=== PATIENT | female | born 1930 | race Caucasian/White ===

== ENCOUNTER → 2017-12-06 | Outpatient (REF) | payer MEDICARE, MEDICAID | LOC: ZZLCC 14:17 | PROVIDERS: ATTEND Family Medicine | DX: R82.90 Unspecified abnormal findings in urine (principal); F41.9 Anxiety disorder, unspecified | CPT/HCPCS: 81001; 82040; 82247; 82310; 82374; 82435; 82565; 82947; 84075; 84132; 84155; 84295; 84443; 84450; 84460; 84520; 85027; 87088 ==

== ENCOUNTER → 2018-03-12 | Outpatient (REF) | payer MEDICARE, MEDICAID | LOC: ZZLCC 17:28 | PROVIDERS: ATTEND Family Medicine | DX: N39.0 Urinary tract infection, site not specified (principal) | CPT/HCPCS: 81001; 87088 ==

== ENCOUNTER 2018-06-02 15:53 | Inpatient (IN) | payer MEDICARE, MEDICAID ==
[~2018-06-02] VITALS: Ht 167.6 cm; Wt 88.0 kg
[2018-06-02 16:28] LABS: PLATELET COUNT, AUTOMATED 247 K/uL (150-450)
--- NOTE | 2018-06-02 16:28 | ER Report ---
History and Physical Time Seen By MD: 15:56 Hx. of Stated Complaint: EMS REPORTS THAT THE PATIENT IS HERE FOR ALTERED MENTAL STATUS. THE PATIENT REPORTS THAT SHE IS HURTING ALL OVER BUT CANNOT SPECIFY WHERE HER PAIN IS. PATIENT DOES NOT KNOW WHY SHE IS HERE HPI/ROS CHIEF COMPLAINT: Lethargy HISTORY OF PRESENT ILLNESS: Patient is a 87-year-old female who presents the ED with complaint of lethargy. She is a resident at the [facility] and nursing staff noted that she has been more lethargic for the past couple days. They discussed this with the physician who advised them to notify the POA. The patient's POA did want her to be evaluated at the emergency department. The patient is DO NOT RESUSCITATE. She does have a history of dementia so confusion is normal for her. She is not having any complaints. She states that she is feeling well. She denies any chest pain, abdominal pain, shortness of breath, dysuria, headache. She has not had any fever. Nursing staff states that all her vital signs have been normal. REVIEW OF SYSTEMS: Constitutional: No fever, no chills. Eyes: No discharge. ENT: No sore throat. Cardiovascular: No chest pain, no palpitations. Respiratory: No cough, no shortness of breath. Gastrointestinal: No abdominal pain, no vomiting. Genitourinary: No hematuria. Musculoskeletal: No back pain. Skin: No rashes. Neurological: No headache. Home Meds Reported Medications Vits A and D/White Pet/Lanolin (A and D Ointment) 42.5 Gm Oint...g. 06/02/18 Guaifenesin (TUSSIN) 100 Mg/5 Ml Liquid, 100 MG PO 06/02/18 Triamterene/Hydrochlorothiazid (TRIAMTERENE-HCTZ 37.5-25 MG CP) 1 Each Capsule, 1 EACH PO QDAY, CAPSULE 06/02/18 Quetiapine Fumarate (SEROQUEL) 25 Mg Tablet, 25 MG PO BID 06/02/18 Potassium Chloride (POTASSIUM CHLORIDE) 20 Meq Tab.er.prt, 20 MEQ PO QDAY 06/02/18 Multivitamin With Minerals (MULTIPLE VITAMIN) 1 Each Tablet, 1 EACH PO QDAY, TAB 06/02/18 Magnesium Hydroxide (MILK OF MAGNESIA) 400 Mg/5 Ml Oral.susp, 400 MG PO, BOTTLE 06/02/18 Lorazepam (LORAZEPAM) 0.5 Mg Tablet, 0.25 MG PO BID 06/02/18 Loperamide Hcl (ANTI-DIARRHEA) 2 Mg Tablet, 2 MG PO Q6H 06/02/18 Levothyroxine Sodium (LEVOTHYROXINE SODIUM) 75 Mcg Tablet, 75 MCG PO QDAY, TAB 06/02/18 Ibuprofen (IBUPROFEN) 200 Mg Capsule, 1 CAP PO Q6H, CAPSULE 06/02/18 Hydroxyzine Hcl (HYDROXYZINE HCL) 25 Mg Tablet, 25 MG PO Q8H Y for ITCHING 06/02/18 Gabapentin (GABAPENTIN) 300 Mg Capsule, 100 MG PO TID, CAPSULE 06/02/18 Furosemide (FUROSEMIDE) 40 Mg Tablet, 2 TAB PO QAM, TAB 06/02/18 Na Phos,M-B/Na Phos,Di-Ba (FLEET ENEMA) 133 Ml Enema, 133 ML RC 06/02/18 Citalopram Hydrobromide (CITALOPRAM HBR) 20 Mg Tablet, 20 MG PO QDAY, #5 TAB 06/02/18 Calcium Phosphate Trib/Vit D3 (CALCIUM-VITAMIN D3 GUMMIES) 1 Each Tab.chew, 1 EACH PO QDAY, TAB.CHEW 06/02/18 Calcium Carbonate (NORBERTO-GEST) 200 Mg Tab.chew, 200 MG PO PRN, TAB.CHEW 06/02/18 Aspirin (ASPIR 81) 81 Mg Tablet.dr, 81 MG PO QDAY, TAB 06/02/18 Dextran 70/Hypromellose (ARTIFICIAL TEARS) 1 Each Droperette, 1 EACH OP 06/02/18 Acetaminophen 500 Mg Tab (ACETAMINOPHEN EXTRA STRENGTH) 500 Mg Tablet, 500 MG PO Q4-6H, TAB 06/02/18 Reviewed Nurses Notes: Yes Old Medical Records Reviewed: Yes Constitutional Vital Sign - Last 24 Hours 06/02/18 15:57 Temp 97.7 Pulse 70 Resp 20 B/P (MAP) 99/58 Pulse Ox 97 O2 Delivery Room Air Physical Exam General Appearance: The patient is alert, has no immediate need for airway protection and no signs of toxicity. Patient appears to be in no acute distress. She is oriented 2. Eyes: Pupils equal and round no pallor or injection. ENT, Mouth: Mucous membranes are moist. Respiratory: There are no retractions, lungs are clear to auscultation. Cardiovascular: Regular rate and rhythm. Gastrointestinal: Abdomen is soft and non tender, no masses, bowel sounds normal. Neurological: Patient will not follow all exam commands for cranial nerves. Cannot appreciate any neurologic deficits at this time but difficult due to patient not cooperating. Skin: Warm and dry, no rashes. Musculoskeletal: Neck is supple non tender. Extremities are nontender, nonswollen and have full range of motion. DIFFERENTIAL DIAGNOSIS: After history and physical exam differential diagnosis was considered for altered mental status including but not limited to hypoglycemia, infectious process, electrolyte abnormality, head injury and intoxicants. Medical Decision Making Data Points Result Diagram: 06/02/18 1620 06/02/18 1620 Laboratory Hematology Test 06/02/18 16:20 Red Blood Count 5.11 M/uL (4.17-5.56) Mean Corpuscular Volume 95.5 fL (80.0-96.0) Mean Corpuscular Hemoglobin 32.7 pg (26.0-33.0) Mean Corpuscular Hemoglobin Concent 34.3 g/dL (32.0-36.0) Red Cell Distribution Width 15.3 % (11.5-14.5) Mean Platelet Volume 9.6 fL (7.2-11.1) Neutrophils (%) (Auto) 76.6 % (39.4-72.5) Lymphocytes (%) (Auto) 10.0 % (17.6-49.6) Monocytes (%) (Auto) 12.0 % (4.1-12.4) Eosinophils (%) (Auto) 0.9 % (0.4-6.7) Basophils (%) (Auto) 0.5 % (0.3-1.4) Nucleated RBC Relative Count (auto) 0.0 /100WBC Neutrophils # (Auto) 7.5 K/uL (2.0-7.4) Lymphocytes # (Auto) 1.0 K/uL (1.3-3.6) Monocytes # (Auto) 1.2 K/uL (0.3-1.0) Eosinophils # (Auto) 0.1 K/uL (0.0-0.5) Basophils # (Auto) 0.0 K/uL (0.0-0.1) Nucleated RBC Absolute Count (auto) 0.00 K/uL Sodium Level 140 mmol/L (137-145) Potassium Level 3.3 mmol/L (3.5-5.0) Chloride Level 89 mmol/L (98-107) Carbon Dioxide Level 40 mmol/L (22-31) Blood Urea Nitrogen 66 mg/dl (7-18) Creatinine 2.00 mg/dl (0.52-1.04) Glomerular Filtration Rate Calc 23.6 Random Glucose 113 mg/dl (75-110) Calcium Level 10.1 mg/dl (8.4-10.2) Total Bilirubin 0.8 mg/dl (0.2-1.3) Aspartate Amino Transf (AST/SGOT) 20 U/L (0-35) Alanine Aminotransferase (ALT/SGPT) 20 U/L (0-56) Alkaline Phosphatase 114 U/L (0-126) Troponin I < 0.012 ng/ml Total Protein 8.1 g/dl (6.3-8.2) Albumin 4.3 g/dl (3.5-5.0) Chemistry Test 06/02/18 16:20 White Blood Count 9.7 k/uL (4.5-11.0) Red Blood Count 5.11 M/uL (4.17-5.56) Hemoglobin 16.7 g/dL (12.0-16.0) Hematocrit 48.8 % (34.0-47.0) Mean Corpuscular Volume 95.5 fL (80.0-96.0) Mean Corpuscular Hemoglobin 32.7 pg (26.0-33.0) Mean Corpuscular Hemoglobin Concent 34.3 g/dL (32.0-36.0) Red Cell Distribution Width 15.3 % (11.5-14.5) Platelet Count 247 K/uL (150-450) Mean Platelet Volume 9.6 fL (7.2-11.1) Neutrophils (%) (Auto) 76.6 % (39.4-72.5) Lymphocytes (%) (Auto) 10.0 % (17.6-49.6) Monocytes (%) (Auto) 12.0 % (4.1-12.4) Eosinophils (%) (Auto) 0.9 % (0.4-6.7) Basophils (%) (Auto) 0.5 % (0.3-1.4) Nucleated RBC Relative Count (auto) 0.0 /100WBC Neutrophils # (Auto) 7.5 K/uL (2.0-7.4) Lymphocytes # (Auto) 1.0 K/uL (1.3-3.6) Monocytes # (Auto) 1.2 K/uL (0.3-1.0) Eosinophils # (Auto) 0.1 K/uL (0.0-0.5) Basophils # (Auto) 0.0 K/uL (0.0-0.1) Nucleated RBC Absolute Count (auto) 0.00 K/uL Glomerular Filtration Rate Calc 23.6 Calcium Level 10.1 mg/dl (8.4-10.2) Total Bilirubin 0.8 mg/dl (0.2-1.3) Aspartate Amino Transf (AST/SGOT) 20 U/L (0-35) Alanine Aminotransferase (ALT/SGPT) 20 U/L (0-56) Alkaline Phosphatase 114 U/L (0-126) Troponin I < 0.012 ng/ml Total Protein 8.1 g/dl (6.3-8.2) Albumin 4.3 g/dl (3.5-5.0) EKG/Imaging EKG Interpretation 12 lead EKG: Rhythm: Normal sinus rhythm, rate 78 bpm [place]: normal QRS: normal ST segments: No acute ST changes noted. There is some T-wave flattening noted throughout V1 through V6. A single PVC is noted. Monitor Interpretation: Normal Sinus Rhythm Imaging CT Head: IMPRESSION: 1. Senescent changes without acute abnormality. Report Dictated By: En Ibarra at 06/02/2018 5:40 PM Report E-Signed By: En Ibarra at 06/02/2018 5:44 PM ED Course/Re-evaluation ED Course Will obtain EKG, labs, CT of the head. 06/02/2018 6:02:09 pm - reviewed all labs and appears the patient does have an elevated BUN/creatinine and creatinine. She does have chronic kidney disease and may have some dehydration on top of this. She does have some upper chloremia in mild hypo-kalemia. Patient was given a 500 normal saline bolus. She does have an elevated hemoglobin and hematocrit likely secondary to some dehydration as well. Patient is otherwise quite alert and does not appear to be overtly lethargic here. She may be monitored at the long term for her hydration status. They can discussed with the POA whether he wants continued IV hydration other than the bolus she received here. Her CT of her head was normal. Decision to Disposition Date: Jun 02, 2018 Decision to Disposition Time: 18:05 Depart Departure Latest Vital Signs Vital Signs Date Time Temp Pulse Resp B/P (MAP) Pulse Ox O2 Delivery O2 Flow Rate FiO2 06/02/18 15:57 97.7 70 20 99/58 97 Room Air Impression: Primary Impression: Chronic kidney disease Additional Impression: Dehydration Condition: Improved Disposition: HOME OR SELF-CARE Patient Instructions: Chronic Kidney Disease (ED), Dehydration (ED) Additional Instructions: Would recommend primary care having discussion with POA regarding any further IV hydration. Patient was given a bolus of fluids here and should consider having labs completed tomorrow to check for hydration status and kidney function. If having any worsening or concerning symptoms may return to the emergency department. Problem Qualifiers Primary Impression: Chronic kidney disease Chronic kidney disease stage: stage 3 (moderate) Qualified Codes: N18.3 - Chronic kidney disease, stage 3 (moderate) HÉCTOR TELLES PA-C Jun 02, 2018 16:28
--- NOTE | 2018-06-02 16:36 | EKG ---
FACILITY: [facility] PATIENT NAME: TREVOR ELLISON : [id number] MR: [id number] V: [id number] EXAM DATE: ORDERING PHYSICIAN: HÉCTOR TELLES TECHNOLOGIST: ISIAH Ren Reason : Blood Pressure : / mmHG Vent. Rate : 078 BPM Atrial Rate : 078 BPM P-R Int : 244 ms QRS Dur : 086 ms QT Int : 438 ms P-R-T Axes : 042 -43 023 degrees QTc Int : 499 ms Sinus rhythm with 1st degree AV block with occasional premature ventricular complexes Left axis deviation Cannot rule out Anterior infarct , age undetermined Abnormal ECG No previous ECGs available Confirmed by AMA ISAAC ([id number]) on 06/03/2018 5:54:33 AM Referred By: SKYE Confirmed By:AMA ISAAC
[2018-06-02] MEDS ORDERED: NS(*) 0.9% 500 ML BAG 500 ML IV ONE ×2 (16:50→18:20)
[2018-06-02] MEDS ORDERED: ACET-2146 PO (17:15)
[2018-06-02] MEDS ORDERED: GUAI-274 PO (17:15)
[2018-06-02] MEDS ORDERED: CITA-145 PO (17:15)
[2018-06-02] MEDS ORDERED: GABA-549 PO (17:15)
[2018-06-02] MEDS ORDERED: LEVO75TA73 PO (17:15)
[2018-06-02] MEDS ORDERED: NA P133E21 RC ×2 (17:15→20:37)
[2018-06-02] MEDS ORDERED: MOM PO (17:15)
[2018-06-02] MEDS ORDERED: QUET25TA30 PO (17:15)
[2018-06-02] MEDS ORDERED: LORA-630 PO (17:15)
[2018-06-02] MEDS ORDERED: FURO-47 PO (17:15)
[2018-06-02] MEDS ORDERED: LOPE-147 PO (17:15)
[2018-06-02] MEDS ORDERED: ASPI-1471 PO (17:15)
[2018-06-02] MEDS ORDERED: IBUP200C71 PO (17:15)
[2018-06-02] MEDS ORDERED: DEXT1DRO15 OP (17:15)
[2018-06-02] MEDS ORDERED: POTA20TA94 PO (17:15)
[2018-06-02] MEDS ORDERED: MULT-1335 PO (17:15)
[2018-06-02] MEDS ORDERED: [UNRECOGNIZED DRUG - CODE] PO (17:15)
[2018-06-02] MEDS ORDERED: CALC1TAB56 PO (17:15)
[2018-06-02] MEDS ORDERED: TRIA1CAP85 PO (17:15)
[2018-06-02] MEDS ORDERED: VITS42.53 (17:15)
[2018-06-02] MEDS ORDERED: HYDR-4225 PO (17:15)
--- NOTE | 2018-06-02 17:49 | RADIOLOGY IMAGING REPORT ---
FACILITY: [facility] [place] PATIENT NAME: Nancy Arteaga : 1930 MR: [id number] V: [id number] EXAM DATE: ORDERING PHYSICIAN: HÉCTOR TELLES TECHNOLOGIST: Location: [facility] Patient: Nancy Arteaga : 1930 Visit/Account:[id number] Date of Sevice: 06/02/2018 CT Head without contrast Indication: Lethargy. Comparison: None available Technique: Axial CT images were obtained through the brain from the skull base to the vertex without administration of IV contrast. Reformatted coronal and sagittal images were also obtained. One of the following dose optimization techniques was utilized in the performance of this exam: autom ated exposure control; adjustment of the mA and/or kV according to the patient's size; or use of an i terative reconstruction technique. Specific details can be referenced in the facility's radiology CT exam operational policy. Findings: No evidence of mass, mass effect, or midline shift. No acute intracranial hemorrhage or acute territorial infarction. No extra-axial fluid collection or hydrocephalus. Age-related cerebral atrophy. Periventricular white matter ischemic changes consistent small vessel disease. Duenas/white matter differentiation appears n ormal. Mild bilateral internal carotid artery calcifications. Structures show no fractures or lesions. Mild rightward deviation nasal septum. The visualized paranasal sinuses and mastoid air cells are clear. IMPRESSION: 1. Senescent changes without acute abnormality. Report Dictated By: En Ibarra at 06/02/2018 5:40 PM Report E-Signed By: En Ibarra at 06/02/2018 5:44 PM WSN:[id number]
--- NOTE | 2018-06-02 19:21 | RADIOLOGY IMAGING REPORT ---
FACILITY: [facility] PATIENT NAME: Nancy Arteaga : 1930 MR: [id number] V: [id number] EXAM DATE: ORDERING PHYSICIAN: HÉCTOR TELLES TECHNOLOGIST: Location: [facility] [place] Patient: Nancy Arteaga : 1930 Visit/Account:[id number] Date of Sevice: 06/02/2018 EXAMINATION: Portable chest radiograph single view at 6:28 PM HISTORY: Lethargy. COMPARISON: None. FINDINGS: A single portable AP view of the chest is obtained. Lines/tubes: None. Lungs/pleura: Streaky opacities at the lung bases. The lungs are hyperexpanded. No evidence of pleur al effusion or pneumothorax. Heart: Negative. Mediastinum: Calcified plaque of the aortic arch. Bony structures/body wall: Negative. IMPRESSION: Subsegmental atelectasis at the lung bases. Superimposed infiltrate is not excluded. Hyperexpanded lungs. Report Dictated By: Clay Wagner MD at 06/02/2018 7:15 PM Report E-Signed By: Clay Wagner MD at 06/02/2018 7:18 PM WSN:[id number]
[2018-06-02] MEDS ORDERED: NS(*) 0.9% 1000 ML BAG 1,000 ML IV PRN (19:48)
[2018-06-02 20:13] VITALS: BP 122/64
[2018-06-02] MEDS ORDERED: CALC-852 PO (20:27)
[2018-06-02] MEDS ORDERED: GABA-547 PO (20:27)
[2018-06-02] MEDS ORDERED: FURO80TA70 PO (20:27)
[2018-06-02] MEDS ORDERED: P EP PO (20:27)
[2018-06-02] MEDS ORDERED: CALC-598 PO (20:32)
[2018-06-02] MEDS ORDERED: DONE10TA38 PO (20:32)
[2018-06-02] MEDS ORDERED: GUIDMUD PO (20:37)
[2018-06-02] MEDS ORDERED: CALCIUM CARBONATE 500 MG CHEW PO PRN (20:45)
--- NOTE | 2018-06-02 21:16 | History & Physical ---
History of Present Illness Chief Complaint Lethargy History of Present Illness The patient is an 87 year old resident of [facility] who was sent to [facility] for evaluation due to lethargy and increased need for help with ADLs. The patient has a history of UTIs. The patient is a poor historian due to dementia. She denies dysuria or abdominal pain. She denies cough. She has not been febrile per nursing report from [facility]. She has a history of CKD and her last creatinine on 05/29 was 1.8. History Problems: (1) Osteoarthritis Status: Chronic (2) Dementia Status: Chronic (3) CKD (chronic kidney disease) Status: Chronic (4) Hypothyroidism Status: Chronic (5) Hypertension Status: Chronic (6) GERD (gastroesophageal reflux disease) Status: Chronic (7) Dysphagia Status: Chronic Comment: Diet is mechanical soft. (8) Depression Status: Chronic (9) Hx: UTI (urinary tract infection) Comment: E. coli Home Meds Reported Medications Na Phos,M-B/Na Phos,Di-Ba (FLEET ENEMA) 133 Ml Enema, 1 THA RC Y for CONSTIPATION 06/02/18 Guaifenesin/Dextromethorphan (Guaifenesin Dm Syrup) 100 Mg-10 Mg/5 Ml Syrup, 15 ML PO Q6H Y for COUGH 06/02/18 Donepezil Hcl (DONEPEZIL HCL) 10 Mg Tablet, 10 MG PO QHS, TAB 06/02/18 Calcium Carbonate (CALCI-CHEW) 500 Mg Tab.chew, 2 TAB PO Q2H Y for GERD, TAB.CHEW 06/02/18 Gabapentin (GABAPENTIN) 100 Mg Capsule, 100 MG PO TID, CAPSULE 06/02/18 Furosemide (FUROSEMIDE) 80 Mg Tablet, 1 TAB PO DAILY, TAB 06/02/18 Calcium Carbonate/Vitamin D3 (CALCIUM + VITAMIN D TABLET) 1 Each Tablet, 1 TAB PO DAILY 06/02/18 Vits A and D/White Pet/Lanolin (A and D Ointment) 42.5 Gm Oint...g. Apply to feet at HS for dry skin 06/02/18 Triamterene/Hydrochlorothiazid (TRIAMTERENE-HCTZ 37.5-25 MG CP) 1 Each Capsule, 1 EACH PO QDAY, CAPSULE 06/02/18 Quetiapine Fumarate (SEROQUEL) 25 Mg Tablet, 25 MG PO BID 06/02/18 Potassium Chloride (POTASSIUM CHLORIDE) 20 Meq Tab.er.prt, 20 MEQ PO QDAY 06/02/18 Multivitamin With Minerals (MULTIPLE VITAMIN) 1 Each Tablet, 1 EACH PO QDAY, TAB 06/02/18 Magnesium Hydroxide (MILK OF MAGNESIA) 400 Mg/5 Ml Oral.susp, 30 ML PO BID Y for CONSTIPATION, BOTTLE 06/02/18 Lorazepam (LORAZEPAM) 0.5 Mg Tablet, 0.25 TAB PO BID 06/02/18 Loperamide Hcl (ANTI-DIARRHEA) 2 Mg Tablet, 2 MG PO QID Y for DIARRHEA 06/02/18 Levothyroxine Sodium (LEVOTHYROXINE SODIUM) 75 Mcg Tablet, 75 MCG PO QDAY, TAB 06/02/18 Ibuprofen (IBUPROFEN) 200 Mg Capsule, 1 CAP PO Q6H Y for restlessness, CAPSULE 06/02/18 Hydroxyzine Hcl (HYDROXYZINE HCL) 25 Mg Tablet, 25 MG PO Q8H Y for ITCHING 06/02/18 Na Phos,M-B/Na Phos,Di-Ba (FLEET ENEMA) 133 Ml Enema, 133 ML RC 06/02/18 Citalopram Hydrobromide (CITALOPRAM HBR) 20 Mg Tablet, 20 MG PO QDAY, #5 TAB Give everyday except Monday. 06/02/18 Aspirin (ASPIR 81) 81 Mg Tablet.dr, 81 MG PO QDAY, TAB 06/02/18 Dextran 70/Hypromellose (ARTIFICIAL TEARS) 1 Each Droperette, 1 EACH OP 06/02/18 Acetaminophen 500 Mg Tab (ACETAMINOPHEN EXTRA STRENGTH) 500 Mg Tablet, 500 MG PO Q4-6H, TAB 06/02/18 Discontinued Reported Medications P-Ephed Hcl/Codeine/Guaifen (GUAIFENESIN DAC ORAL SOLUTION) 473 Ml Syrup, 15 ML PO Q6H Y for COUGH 06/02/18 Guaifenesin (TUSSIN) 100 Mg/5 Ml Liquid, 100 MG PO 06/02/18 Gabapentin (GABAPENTIN) 300 Mg Capsule, 100 MG PO TID, CAPSULE 06/02/18 Furosemide (FUROSEMIDE) 40 Mg Tablet, 2 TAB PO QAM, TAB 06/02/18 Calcium Phosphate Trib/Vit D3 (CALCIUM-VITAMIN D3 GUMMIES) 1 Each Tab.chew, 1 EACH PO QDAY, TAB.CHEW 06/02/18 Calcium Carbonate (NORBERTO-GEST) 200 Mg Tab.chew, 200 MG PO PRN, TAB.CHEW 06/02/18 Allergies: Coded Allergies: Sulfa (Sulfonamide Antibiotics) (Verified Allergy, Unknown, 06/02/18) Other Social/Family Hx The patient is a retired business performance analyst at . She is . Hx Smoking: Yes Smoking Status: Former Smoker Review of Systems All Systems Reviewed/Normal: Yes, Except as Noted Constitutional: No Fever, No Chills Neurological: Weakness, Other (Dementia with agitation.) Cardiovascular: No Chest Pain Respiratory: No Shortness of Breath, No Cough Gastrointestinal: No Abdominal Pain Genitourinary: No Dysuria Psychiatric: Depression Exam Vital Signs Vital Signs Date Time Temp Pulse Resp B/P (MAP) Pulse Ox O2 Delivery O2 Flow Rate FiO2 06/02/18 20:13 97.7 70 16 122/64 (83) 92 Room Air General Appearance: Awake, No Acute Distress, Afebrile Neuro: Other (Poor short term memory. Becomes easily agitated.) Eyes: PERRLA ENT: Other (Mucous membranes dry, sticky.) Cardiovascular: Regular Rate and Rhythm Respiratory: Clear to Auscultation GI: Other (Abdomen slightly distended. BS+.) Extremities: Warm, Perfused, Other (Chronic venous stasis changes. No significant edema.) Integumentary: Scaly / Dry Skin Psych: Other (Agitated.) Medical Decision Making Data Points Result Diagram: 06/02/18 1620 06/02/18 1620 Item Value Date Time Calcium Level 10.1 mg/dl 06/02/18 1620 Total Bilirubin 0.8 mg/dl 06/02/18 1620 Aspartate Amino Transf (AST/SGOT) 20 U/L 06/02/18 1620 Alanine Aminotransferase (ALT/SGPT) 20 U/L 06/02/18 1620 Alkaline Phosphatase 114 U/L 06/02/18 1620 Troponin I < 0.012 ng/ml 06/02/18 1620 Total Protein 8.1 g/dl 06/02/18 1620 Albumin 4.3 g/dl 06/02/18 1620 EKG / Imaging EKG Interpretation FACILITY: [facility] [place] PATIENT NAME: NANCY ELLISON : [id number] MR: [id number] V: [id number] EXAM DATE: ORDERING PHYSICIAN: HÉCTOR TELLES TECHNOLOGIST: ISIAH Ren Reason : Blood Pressure : / mmHG Vent. Rate : 078 BPM Atrial Rate : 078 BPM P-R Int : 244 ms QRS Dur : 086 ms QT Int : 438 ms P-R-T Axes : 042 -43 023 degrees QTc Int : 499 ms Sinus rhythm with 1st degree AV block with occasional premature ventricular complexes Left axis deviation Cannot rule out Anterior infarct , age undetermined Abnormal ECG No previous ECGs available Referred By: SKYE Confirmed By: [id number] T: / Imaging FACILITY: [facility] [place] PATIENT NAME: Nancy Ellison : 1930 MR: [id number] V: [id number] EXAM DATE: ORDERING PHYSICIAN: HÉCTOR TELLES TECHNOLOGIST: Location: [facility] Patient: Nancy Ellison : 1930 Visit/Account:[id number] Date of Sevice: 06/02/2018 CT Head without contrast Indication: Lethargy. Comparison: None available Technique: Axial CT images were obtained through the brain from the skull base to the vertex without administration of IV contrast. Reformatted coronal and sagittal images were also obtained. One of the following dose optimization techniques was utilized in the performance of this exam: automated exposure control; adjustment of the mA and/ or kV according to the patient's size; or use of an iterative reconstruction technique. Specific details can be referenced in the facility's radiology CT exam operational policy. Findings: No evidence of mass, mass effect, or midline shift. No acute intracranial hemorrhage or acute territorial infarction. No extra-axial fluid collection or hydrocephalus. Age-related cerebral atrophy. Periventricular white matter ischemic changes consistent small vessel disease. Duenas/white matter differentiation appears normal. Mild bilateral internal carotid artery calcifications. Structures show no fractures or lesions. Mild rightward deviation nasal septum. The visualized paranasal sinuses and mastoid air cells are clear. IMPRESSION: 1. Senescent changes without acute abnormality. Report Dictated By: En Ibarra at 06/02/2018 5:40 PM Report E-Signed By: En Ibarra at 06/02/2018 5:44 PM WSN:[id number] FACILITY: [facility] [place] PATIENT NAME: Nancy Ellison : 1930 MR: [id number] V: [id number] EXAM DATE: ORDERING PHYSICIAN: HÉCTOR TELLES TECHNOLOGIST: Location: [facility] Patient: Nancy Ellison : 1930 Visit/Account:[id number] Date of Sevice: 06/02/2018 EXAMINATION: Portable chest radiograph single view at 6:28 PM HISTORY: Lethargy. COMPARISON: None. FINDINGS: A single portable AP view of the chest is obtained. Lines/tubes: None. Lungs/pleura: Streaky opacities at the lung bases. The lungs are hyperexpanded. No evidence of pleural effusion or pneumothorax. Heart: Negative. Mediastinum: Calcified plaque of the aortic arch. Bony structures/body wall: Negative. IMPRESSION: Subsegmental atelectasis at the lung bases. Superimposed infiltrate is not excluded. Hyperexpanded lungs. Report Dictated By: Clay Wagner MD at 06/02/2018 7:15 PM Report E-Signed By: Clay Wagner MD at 06/02/2018 7:18 PM WSN:[id number] Pre-Admit Course ED Medications NS Medical Record Review: Yes ([facility] records.) Assessment and Plan Problems: (1) Dehydration Status: Acute Assessment & Plan: The patient has dry mucous membranes and is lethargic. She was hypotensive in the ER. Creatinine is increased from her baseline. Will hold diuretics and hydrate. (2) RAJINDER (acute kidney injury) Status: Acute Assessment & Plan: Due to above. Recheck BMP in am. (3) Hypokalemia Status: Acute Assessment & Plan: Mild. Will add potassium to IV fluids. (4) Chronic kidney disease Status: Chronic Assessment & Plan: Her creatinine in November was noted to be 1.2. Will hydrate and repeat BMP in am. (5) Dementia Status: Chronic Assessment & Plan: Hold donepezil for now. She also chronically takes Ativan 1/ 4 of a 0.5mg tablet. Will hold for now due to lethargy. (6) Hypothyroidism Status: Chronic Assessment & Plan: Continue levothyroxine 75mcg daily. (7) Hypertension Status: Chronic Assessment & Plan: Currently BP is low to low normal. Hold diuretics and monitor. (8) Depression Status: Chronic Assessment & Plan: Hold citalopram for now. (9) Dysphagia Status: Chronic Assessment & Plan: Continue a mechanical soft diet. (10) GERD (gastroesophageal reflux disease) Status: Chronic Assessment & Plan: Continue TUMs prn. (11) Hx: UTI (urinary tract infection) Assessment & Plan: The patient has not yet allowed collection of a cath UA due to agitation. Will continue to attempt to get a sample due to change in status and history of UTIs. Time Spent on Plan of Care: < 30 min Venous Thromboembolism VTE Risk Patient's VTE Risk: Low Antithrombotics Is Pt On Any Antithrombotics?: No Exam Sepsis Risk: No Definite Risk Problem Qualifiers (1) Chronic kidney disease: Chronic kidney disease stage: stage 3 (moderate) Qualified Codes: N18.3 - Chronic kidney disease, stage 3 (moderate) AMA VALDEZ MD Jun 02, 2018 21:15
[2018-06-02] MEDS: KCL/NS* 20 MEQ/1000 ML PREMIX 1,000 ML IV SCH (21:29)
[2018-06-03] VITALS (7 sets, daily range): BP systolic 80–99; BP diastolic 45–62; Ht 167.6 cm; Wt 88.0 kg
[2018-06-03] MEDS: LEVOTHYROXINE SOD 0.075 MG TAB PO SCH ×2 (06:00→06:15)
[2018-06-03 06:25] LABS: PLATELET COUNT, AUTOMATED 202 K/uL (150-450)
[2018-06-03] MEDS ORDERED: ACETAMINOPHEN 500 MG TAB PO PRN (06:55)
--- NOTE | 2018-06-03 07:50 | Hospitalist Progress Note ---
Subjective Progress Notes Subjective Patient developed fever this am. She states she does not feel well. Physical Exam Vital Signs Date Time Temp Pulse Resp B/P (MAP) Pulse Ox O2 Delivery O2 Flow Rate FiO2 06/03/18 06:16 101.6 74 91 Room Air 06/03/18 02:59 12 91/52 (65) 06/02/18 20:10 1.0 General Appearance: Alert, Awake Neuro: Other (Confused.) Eyes: PERRLA Cardiovascular: Regular Rate and Rhythm Respiratory: Clear to Auscultation (Anteriorly.) GI: Other (Slightly d) Extremities: Warm, Perfused, Other (No significant edema.) Integumentary: Other (Chronic venous stasis changes. Superficial abrasions over L forearm and abdomen with serous drainage.) Psych: Other (Agitated.) Result Diagram: 06/03/18 0551 06/03/18 0551 Monitor Interpretation: Normal Sinus Rhythm Assessment and Plan Problems: (1) Dehydration Status: Acute Assessment & Plan: The patient had dry mucous membranes and was lethargic. She was hypotensive in the ER. Creatinine was increased from her baseline. Diuretics were held and she was hydrated. Creatinine improved today to 1.3 which is near her baseline. (2) RAJINDER (acute kidney injury) Status: Acute Assessment & Plan: Due to above. Continue to gently hydrate. (3) Acute UTI Status: Acute Assessment & Plan: The patient developed fever this am. Cath UA shows bacteria and leukocytes. She has hx of UTIs. Ceftriaxone ordered. Urine culture pending. (4) Hypokalemia Status: Acute Assessment & Plan: Mild. Will add potassium to IV fluids. (5) Chronic kidney disease Status: Chronic Assessment & Plan: Her creatinine in November was noted to be 1.2. Will hydrate and repeat BMP in am. (6) Dementia Status: Chronic Assessment & Plan: She chronically takes donepezil 10mg at HS and Ativan 1/4 of a 0.5mg tablet. (7) Hypothyroidism Status: Chronic Assessment & Plan: Continue levothyroxine 75mcg daily. (8) Hypertension Status: Chronic Assessment & Plan: Currently BP is low to low normal. Hold diuretics and monitor. (9) Depression Status: Chronic Assessment & Plan: She takes citalopram chronically. (10) Dysphagia Status: Chronic Assessment & Plan: Continue a mechanical soft diet. (11) GERD (gastroesophageal reflux disease) Status: Chronic Assessment & Plan: Continue TUMs prn. Time Spent on Plan of Care: < 30 min Exam Sepsis Risk: No Definite Risk Problem Qualifiers (1) Chronic kidney disease: Chronic kidney disease stage: stage 3 (moderate) Qualified Codes: N18.3 - Chronic kidney disease, stage 3 (moderate) AMA VALDEZ MD Jun 03, 2018 07:50
[2018-06-03] MEDS ORDERED: WATER STERILE 10 ML VIAL IM ONLY PRN (07:55)
[2018-06-03] MEDS ORDERED: OLANZapine 10 MG VIAL IM ONLY PRN (07:55)
[2018-06-03] MEDS ORDERED: LORazepam 2 MG/ML VIAL IVP PRN (07:55)
[2018-06-03] MEDS: KCL/NS* 20 MEQ/1000 ML PREMIX 1,000 ML IV SCH ×2 (07:59→20:40)
[2018-06-03] MEDS ORDERED: cefTRIAXone(*) 1 GM VIAL 1 GM in NS(*) 0.9% 100 ML ADDVANT BAG 100 ML IVPB SCH (08:00)
[2018-06-03] MEDS: ASPIRIN 81 MG ENTERIC COATED PO SCH (08:26)
[2018-06-03] MEDS: QUEtiapine FUM 25 MG TAB PO SCH ×2 (08:26→20:40)
[2018-06-03] MEDS: LORazepam 0.5 MG TAB PO SCH ×2 (08:27→20:40)
[2018-06-03] MEDS: POTASSIUM CHL 20 MEQ TABCR PO SCH (09:00)
[2018-06-03] MEDS: CITALOPRAM HYDROBROM 20 MG TAB PO SCH (09:00)
[2018-06-03] MEDS: GABAPENTIN 100 MG CAP PO SCH ×3 (09:00→20:40)
[2018-06-03] MEDS: cefTRIAXone(*) 1 GM VIAL 1 GM in NS(*) 0.9% 100 ML ADDVANT BAG 100 ML IVPB SCH (09:14)
[2018-06-03] MEDS ORDERED: NS(*) 0.9% 500 ML BAG 500 ML IV ONE (11:20)
--- NOTE | 2018-06-03 11:29 | Medical Nutrition Therapy ---
Nutrition Anthropometrics Height (Inches): 66.00 Height (Calculated Centimeters: 167.187568 Weight (Pounds): 194 Weight (Calculated Kilograms): 87.997 Igor Nutrition Score: Probably Inadequate Igor Nutrition Risk Score: 14 Dietary Referral Nutrition Risk Factors: Special Diet Nutrition Risk Comment: Needs to be fed. Mechanical soft diet Physical Findings Physical Appearance: Obese BMI 30-39 Skin Appearance Skin Appearance: Edema Edema Location Modifier: Edema Location: Type of Edema: Degree of Edema: Gastrointestinal Symptoms GI Symtoms: Tube Present: Bowel Sounds: Recent Bowel Pattern: Stool Characteristics: Nutritional Diagnosis Nutritional Risk Acuity 2: Chronic Renal Failure, Dysphagia, Swallowing Problem Nutritional Risk Acuity 3: GERD Past Medical History: osteoarthritis, dementia, CKD, hypothyroidism, HTN, GERD, dysphagia, depression, UTI Nutritional Acuity: 2-Moderate Nutrition Diagnosis: Inadequate Food Intake Nutrition Etiology: Physiological Causes Nutrition Problem/Etiology/Sym: Inadequate oral intake related to physiological causes as evidenced by dehydration, RAJINDER and refusal of meals in facility. Adjusted Energy Requirement Re: 1570 ([id number]) Protein Requirement: 69 (.8 g/kg) Fluid Requirement: 2175 Diet Type: Soft Mechanical Nutrition Intervention: Cont diet as ordered, Encourage intake Nutrition Monitoring & Eval RD Patient Assessment Time: [address] Assessment Type: RD Assessment Patient Nutrition Acuity: 2-Moderate Follow Up Date: Jun 06, 2018 Nutritional Comment: 06/03 Pt admitted with lethargy and will be treated for dehydration and RAJINDER. Noting dysphagia so pt is on mechanical soft diet. Pt may benefit from MINISTER ASSISTANT eval. Refused one meal. Notable labs include K 3, BUN 52, creatinine 1.3 and Mg 2.3. Will cont to monitor and encourage intake. -WOODROW DOLAN Jun 03, 2018 11:29
[2018-06-03] MEDS: ACETAMINOPHEN(*)1000 MG/100 ML 100 ML IVPB PRN (17:50)
[2018-06-03] MEDS: DONEPEZIL HCL 5 MG TAB PO SCH (20:41)
[2018-06-04] VITALS (7 sets, daily range): BP systolic 87–116; BP diastolic 43–65
[2018-06-04] MEDS: ACETAMINOPHEN(*)1000 MG/100 ML 100 ML IVPB PRN (00:22)
[2018-06-04] MEDS: LEVOTHYROXINE SOD 0.075 MG TAB PO SCH (06:04)
[2018-06-04 06:31] LABS: PLATELET COUNT, AUTOMATED 183 K/uL (150-450)
[2018-06-04] MEDS: KCL/NS* 20 MEQ/1000 ML PREMIX 1,000 ML IV SCH ×3 (07:24→18:20)
[2018-06-04] MEDS: CITALOPRAM HYDROBROM 20 MG TAB PO SCH (08:37)
[2018-06-04] MEDS: GABAPENTIN 100 MG CAP PO SCH ×3 (08:37→21:18)
[2018-06-04] MEDS: ASPIRIN 81 MG ENTERIC COATED PO SCH (08:37)
[2018-06-04] MEDS: QUEtiapine FUM 25 MG TAB PO SCH ×2 (08:37→21:18)
[2018-06-04] MEDS: POTASSIUM CHL 20 MEQ TABCR PO SCH (08:37)
[2018-06-04] MEDS: LORazepam 0.5 MG TAB PO SCH ×2 (08:37→21:17)
[2018-06-04] MEDS: cefTRIAXone(*) 1 GM VIAL 1 GM in NS(*) 0.9% 100 ML ADDVANT BAG 100 ML IVPB SCH (08:38)
--- NOTE | 2018-06-04 09:40 | Hospitalist Progress Note ---
Subjective Progress Notes Subjective This patient was admitted with altered mental status. She developed a fever on the night of admission and was diagnosed with a urinary infection. Patient Complains of: Cardiovascular: No: Chest Pain Respiratory: No: Shortness of Breath Physical Exam Vital Signs Date Time Temp Pulse Resp B/P (MAP) Pulse Ox O2 Delivery O2 Flow Rate FiO2 06/04/18 07:34 97/45 (62) 06/04/18 07:33 93 06/04/18 07:29 98.1 62 16 Room Air 06/04/18 03:50 5.0 Intake and Output 06/05/18 06:59 Intake Total 1160 ml Balance 1160 ml Intake Oral 160 ml IV Total 1000 ml Cardiovascular: Regular Rate and Rhythm Respiratory: Clear to Auscultation Result Diagram: 06/04/18 0556 06/04/18 0556 Monitor Interpretation: Normal Sinus Rhythm Assessment and Plan Problems: (1) Dehydration Status: Acute Assessment & Plan: She did present with an increased creatinine and clinical signs of dehydration. She has been improving with IV fluids. (2) RAJINDER (acute kidney injury) Status: Acute Assessment & Plan: Improving with Iv fluids. (3) Acute UTI Status: Acute Assessment & Plan: She did develop a fever and her urine showed moderate bacteria. She is on empiric treatment with ceftriaxone. A culture is pending. (4) Hypokalemia Status: Acute Assessment & Plan: She is receiving both oral and IV supplementation. (5) Chronic kidney disease Status: Chronic (6) Dementia Status: Chronic Assessment & Plan: She is on chronic treatment with Aricept and lorazepam. (7) Hypothyroidism Status: Chronic Assessment & Plan: Continue levothyroxine 75mcg daily. (8) Hypertension Status: Chronic Assessment & Plan: She is on chronic treatment with Triamterene/ hydrochlorothiazide and Lasix. These have been on hold since admission and her blood pressures remain low. (9) Depression Status: Chronic Assessment & Plan: She is on chronic treatment with citalopram. (10) Dysphagia Status: Chronic Assessment & Plan: She is on a mechanical soft diet. Exam Sepsis Risk: No Definite Risk Problem Qualifiers (1) Chronic kidney disease: Chronic kidney disease stage: stage 3 (moderate) Qualified Codes: N18.3 - Chronic kidney disease, stage 3 (moderate) ARIES CONTRERAS DO Jun 04, 2018 09:40
[2018-06-04] MEDS: DONEPEZIL HCL 5 MG TAB PO SCH (21:17)
[2018-06-05 03:12] VITALS: BP 118/80
[2018-06-05] MEDS: KCL/NS* 20 MEQ/1000 ML PREMIX 1,000 ML IV SCH (04:43)
[2018-06-05] MEDS: LEVOTHYROXINE SOD 0.075 MG TAB PO SCH (05:52)
[2018-06-05 07:34] VITALS: BP 118/53
[2018-06-05] MEDS: QUEtiapine FUM 25 MG TAB PO SCH (08:37)
[2018-06-05] MEDS: LORazepam 0.5 MG TAB PO SCH (08:37)
[2018-06-05] MEDS: GABAPENTIN 100 MG CAP PO SCH (08:37)
[2018-06-05] MEDS: ASPIRIN 81 MG ENTERIC COATED PO SCH (08:37)
[2018-06-05] MEDS: POTASSIUM CHL 20 MEQ TABCR PO SCH (08:37)
[2018-06-05] MEDS: CITALOPRAM HYDROBROM 20 MG TAB PO SCH (08:37)
[2018-06-05] MEDS: cefTRIAXone(*) 1 GM VIAL 1 GM in NS(*) 0.9% 100 ML ADDVANT BAG 100 ML IVPB SCH (09:24)
--- NOTE | 2018-06-05 09:56 | Hospitalist Depart ---
Discharge Summary Reason for Hosp/Final Diag: (1) Dehydration Status: Acute Hospital Course & Plan: The patient had dry mucous membranes and was lethargic. She was hypotensive in the ER. Creatinine was increased from her baseline. Diuretics were held and she was hydrated. Creatinine improved to 1.3 which is near her baseline. Will not restart diuretics. See below. (2) Acute UTI Status: Acute Hospital Course & Plan: She did develop a fever and her urine showed moderate bacteria. She is growing GPC, but the final identification and sensitivities won't be done until tomorrow. She is on empiric treatment with ceftriaxone and today is day #3. She has been afebrile greater than 24 hours. Will not send home on any further treatment. (3) RAJINDER (acute kidney injury) Status: Resolved Hospital Course & Plan: Secondary to dehydration that was exacerbated by chronic diuretic use. Improved with IV fluids. (4) Hypokalemia Status: Acute Hospital Course & Plan: Secondary to diuretic use. She received both oral and IV supplementation. Follow up BMP on 06/07. (5) Dementia Status: Chronic Hospital Course & Plan: She is on chronic treatment with Aricept and lorazepam. (6) Hypothyroidism Status: Chronic Hospital Course & Plan: Continue levothyroxine 75mcg daily. (7) Hypertension Status: Chronic Hospital Course & Plan: She is on chronic treatment with Triamterene/ hydrochlorothiazide and Lasix. These have been on hold since admission and her blood pressures remains low normal. Will not restart (8) Depression Status: Chronic Hospital Course & Plan: She is on chronic treatment with citalopram. (9) Dysphagia Status: Chronic Hospital Course & Plan: She is on a mechanical soft diet. (10) Chronic kidney disease Status: Chronic Departure Weight (Pounds): 194 Result Diagram: 06/04/18 0556 06/04/18 0556 Item Value Date Time Creatinine 2.00 mg/dl H 06/02/18 1620 Creatinine 1.30 mg/dl H 06/03/18 0551 Creatinine 1.20 mg/dl H 06/04/18 0556 Blood Urea Nitrogen 36 mg/dl H 06/04/18 0556 Blood Urea Nitrogen 52 mg/dl H 06/03/18 0551 Blood Urea Nitrogen 66 mg/dl H 06/02/18 1620 Potassium Level 3.3 mmol/L L 06/02/18 1620 Potassium Level 3.0 mmol/L L 06/03/18 0551 Potassium Level 3.3 mmol/L L 06/04/18 0556 Sodium Level 143 mmol/L 06/04/18 0556 Sodium Level 139 mmol/L 06/03/18 0551 Sodium Level 140 mmol/L 06/02/18 1620 Total Bilirubin 0.8 mg/dl 06/02/18 1620 Aspartate Amino Transf (AST/SGOT) 20 U/L 06/02/18 1620 Alanine Aminotransferase (ALT/SGPT) 20 U/L 06/02/18 1620 Alkaline Phosphatase 114 U/L 06/02/18 1620 Troponin I < 0.012 ng/ml 06/02/18 1620 Total Protein 8.1 g/dl 06/02/18 1620 Albumin 4.3 g/dl 06/02/18 1620 Platelet Count 247 K/uL 06/02/18 1620 Platelet Count 202 K/uL 06/03/18 0551 Platelet Count 183 K/uL 06/04/18 0556 Hemoglobin 13.5 g/dL 06/04/18 0556 Hemoglobin 14.0 g/dL 06/03/18 0551 Hemoglobin 16.7 g/dL H 06/02/18 1620 White Blood Count 9.7 k/uL 06/02/18 1620 White Blood Count 7.8 k/uL 06/03/18 0551 White Blood Count 7.2 k/uL 06/04/18 0556 Urine Urobilinogen 4.0 mg/dL H 06/03/18 0342 Urine Leukocyte Esterase Trace H 06/03/18 0342 Urine RBC 12 /HPF 06/03/18 0342 Urine WBC 8 /HPF 06/03/18 0342 Urine Squamous Epithelial Cells None /LPF 06/03/18 0342 Urine Bacteria Moderate /HPF H 06/03/18 0342 PATIENT: TREVOR ELLISON ACCT: [id number] LOC: [facility] U : [id number] AGE/SX: 87/F ROOM: [facility] REG : 06/02/[address]: AMA VALDEZ MD : [id number] BED: 281 DIS : STATUS: ADM IN TLOC: SPEC #: [id number] MELINA: 06/03/18 STATUS: RES REQ #: [id number] RECD: 06/03/[address] [facility] [address]: AMA VALDEZ MD SOURCE: [facility] ENTR: 06/03/[address] [facility] [address]: SPDES: ORDERED: CULT URINE COMMENTS: Has specimen been collected/obtained? Y Comments: Culture urine collected 06/02 Procedure Result Verified URINE CULTURE Preliminary 06/04/18-934 Organism 1 GRAM POSITIVE COCCI >100,000 COL/ML ID AND SENSITIVITY TO FOLLOW Imaging 06/02/18 CXR - Subsegmental atelectasis at the lung bases. Superimposed infiltrate is not excluded. Hyperexpanded lungs. 06/02/[address] - 1. Senescent changes without acute abnormality. EKG Vent. Rate : 078 BPM Atrial Rate : 078 BPM P-R Int : 244 ms QRS Dur : 086 ms QT Int : 438 ms P-R-T Axes : 042 -43 023 degrees QTc Int : 499 ms Sinus rhythm with 1st degree AV block with occasional premature ventricular complexes Left axis deviation Cannot rule out Anterior infarct , age undetermined Abnormal ECG No previous ECGs available Confirmed by AMA ISAAC ([id number]) on 06/03/2018 5:54:33 AM Condition: Improved Discharge: Assisted Discharge Instructions Home Meds Reported Medications Na Phos,M-B/Na Phos,Di-Ba (FLEET ENEMA) 133 Ml Enema, 1 THA RC Y for CONSTIPATION 06/02/18 Guaifenesin/Dextromethorphan (Guaifenesin Dm Syrup) 100 Mg-10 Mg/5 Ml Syrup, 15 ML PO Q6H Y for COUGH 06/02/18 Donepezil Hcl (DONEPEZIL HCL) 10 Mg Tablet, 10 MG PO QHS, TAB 06/02/18 Calcium Carbonate (CALCI-CHEW) 500 Mg Tab.chew, 2 TAB PO Q2H Y for GERD, TAB.CHEW 06/02/18 Gabapentin (GABAPENTIN) 100 Mg Capsule, 100 MG PO TID, CAPSULE 06/02/18 Calcium Carbonate/Vitamin D3 (CALCIUM + VITAMIN D TABLET) 1 Each Tablet, 1 TAB PO DAILY 06/02/18 Vits A and D/White Pet/Lanolin (A and D Ointment) 42.5 Gm Oint...g. Apply to feet at HS for dry skin 06/02/18 Quetiapine Fumarate (SEROQUEL) 25 Mg Tablet, 25 MG PO BID 06/02/18 Multivitamin With Minerals (MULTIPLE VITAMIN) 1 Each Tablet, 1 EACH PO QDAY, TAB 06/02/18 Magnesium Hydroxide (MILK OF MAGNESIA) 400 Mg/5 Ml Oral.susp, 30 ML PO BID Y for CONSTIPATION, BOTTLE 06/02/18 Lorazepam (LORAZEPAM) 0.5 Mg Tablet, 0.25 TAB PO BID 06/02/18 Loperamide Hcl (ANTI-DIARRHEA) 2 Mg Tablet, 2 MG PO QID Y for DIARRHEA 06/02/18 Levothyroxine Sodium (LEVOTHYROXINE SODIUM) 75 Mcg Tablet, 75 MCG PO QDAY, TAB 06/02/18 Ibuprofen (IBUPROFEN) 200 Mg Capsule, 1 CAP PO Q6H Y for pain, CAPSULE 06/02/18 Hydroxyzine Hcl (HYDROXYZINE HCL) 25 Mg Tablet, 25 MG PO Q8H Y for ITCHING 06/02/18 Citalopram Hydrobromide (CITALOPRAM HBR) 20 Mg Tablet, 20 MG PO QDAY, #5 TAB Give everyday except Monday. 06/02/18 Aspirin (ASPIR 81) 81 Mg Tablet.dr, 81 MG PO QDAY, TAB 06/02/18 Dextran 70/Hypromellose (ARTIFICIAL TEARS) 1 Each Droperette, 1 EACH OP 06/02/18 Acetaminophen 500 Mg Tab (ACETAMINOPHEN EXTRA STRENGTH) 500 Mg Tablet, 500 MG PO Q6H Y for PAIN, TAB 06/02/18 Discontinued Reported Medications Furosemide (FUROSEMIDE) 80 Mg Tablet, 1 TAB PO DAILY, TAB 06/02/18 Triamterene/Hydrochlorothiazid (TRIAMTERENE-HCTZ 37.5-25 MG CP) 1 Each Capsule, 1 EACH PO QDAY, CAPSULE 06/02/18 Potassium Chloride (POTASSIUM CHLORIDE) 20 Meq Tab.er.prt, 20 MEQ PO QDAY 06/02/18 Na Phos,M-B/Na Phos,Di-Ba (FLEET ENEMA) 133 Ml Enema, 133 ML RC 06/02/18 P-Ephed Hcl/Codeine/Guaifen (GUAIFENESIN DAC ORAL SOLUTION) 473 Ml Syrup, 15 ML PO Q6H Y for COUGH 06/02/18 Guaifenesin (TUSSIN) 100 Mg/5 Ml Liquid, 100 MG PO 06/02/18 Gabapentin (GABAPENTIN) 300 Mg Capsule, 100 MG PO TID, CAPSULE 06/02/18 Furosemide (FUROSEMIDE) 40 Mg Tablet, 2 TAB PO QAM, TAB 06/02/18 Calcium Phosphate Trib/Vit D3 (CALCIUM-VITAMIN D3 GUMMIES) 1 Each Tab.chew, 1 EACH PO QDAY, TAB.CHEW 06/02/18 Calcium Carbonate (NORBERTO-GEST) 200 Mg Tab.chew, 200 MG PO PRN, TAB.CHEW 06/02/18 Activity: As Tolerated Special Instructions: BMP on 06/07 to follow up potassium and creatinine Mechanical soft diet Copies to: ADDY COREAS MD Venous Thromboembolism Antithrombotics Is Pt On Any Antithrombotics?: No Problem Qualifiers (1) Chronic kidney disease: Chronic kidney disease stage: stage 3 (moderate) Qualified Codes: N18.3 - Chronic kidney disease, stage 3 (moderate) DUKE POP MD Jun 05, 2018 09:56
== END 2018-06-05 14:10 | DRG 641 ==
LOC: EDUNIT# 15:53 → ER 16:03 → MED 18:52
PROVIDERS: ADMIT Internal Medicine; ATTEND Internal Medicine
DX: E86.0 Dehydration (principal); N17.9 Acute kidney failure, unspecified; N39.0 Urinary tract infection, site not specified; E87.6 Hypokalemia; I12.9 Hypertensive chronic kidney disease with stage 1 through stage 4 chronic kidney disease, or unspecified chronic kidney disease; N18.3 Chronic kidney disease, stage 3 (moderate); I95.9 Hypotension, unspecified; T50.2X5A Adverse effect of carbonic-anhydrase inhibitors, benzothiadiazides and other diuretics, initial encounter; F03.90 Unspecified dementia, unspecified severity, without behavioral disturbance, psychotic disturbance, mood disturbance, and anxiety; E03.9 Hypothyroidism, unspecified; Z66 Do not resuscitate; F32.9 Major depressive disorder, single episode, unspecified; R13.10 Dysphagia, unspecified; K21.9 Gastro-esophageal reflux disease without esophagitis; Z88.2 Allergy status to sulfonamides
CPT/HCPCS: 36415; 70450; 71045; 81001; 82040; 82247; 82310; 82374; 82435; 82565; 82947; 83735; 84075; 84132; 84155; 84295; 84450; 84460; 84484; 84520; 85025; 87077; 87088; 93005; A4353; J0131; J0696; J3480; J7030; J7040; J7050

== ENCOUNTER → 2018-06-02 | Outpatient (CLI) | payer MEDICARE, MEDICAID ==
[~2018-06-02] MED LIST: ACET-2146 PO; ASPI-1471 PO; CALC-598 PO; CALC-852 PO; CALC1TAB56 PO; CITA-145 PO; DEXT1DRO15 OP; DONE10TA38 PO; FURO-47 PO; FURO80TA70 PO; GABA-547 PO; GABA-549 PO; GUAI-274 PO; GUIDMUD PO; HYDR-4225 PO; IBUP-136 PO; LEVO75TA73 PO; LOPE-147 PO; LORA-630 PO; MOM PO; MULT-1335 PO; NA P133E21 RC; P EP PO; POTA20TA94 PO; QUET25TA30 PO; TRIA1CAP85 PO; VITS42.53; [UNRECOGNIZED DRUG - CODE] PO
[2018-06-03 11:17] VITALS: BMI 31.3
== END ==
LOC: AMB 15:33
PROVIDERS: ATTEND Nurse Practitioner
DX: R53.83 Other fatigue (principal)
CPT/HCPCS: A0425; A0429

== ENCOUNTER 2018-07-31 20:11 | Emergency (ER) | payer MEDICARE, MEDICAID ==
[2018-06-03 11:17] VITALS: Wt 96.8 kg
--- NOTE | 2018-07-31 20:23 | ER Report ---
History and Physical Time Seen By MD: 20:24 Hx. of Stated Complaint: PT REPORTS SHE THINKS SHE IS GOING CRAZY. HPI/ROS CHIEF COMPLAINT: Increased aggression HISTORY OF PRESENT ILLNESS: This is an 87-year-old female who presents from the [facility] for increased aggression and agitation. The [facility] staff are concerned that the patient may have a urinary tract infection, she's had increased agitation today and making nonspecific threats, not directed at any one specific person, patient does have a history of dementia and Alzheimer's. No recent illnesses, no fevers or chills. The patient arrives cooperative, speaking in a normal tone, has no complaints. During our conversation the patient thought that she was in [place]. The patient states she did probably yellow someone today because they wouldn't talk to her about her mother. REVIEW OF SYSTEMS: Constitutional: No fever, no chills. Eyes: No discharge. ENT: No sore throat. Cardiovascular: No chest pain, no palpitations. Respiratory: No cough, no shortness of breath. Gastrointestinal: No abdominal pain, no vomiting. Genitourinary: No hematuria. Musculoskeletal: No back pain. Skin: No rashes. Neurological: As above. Psych: As above. Allergies: Coded Allergies: Sulfa (Sulfonamide Antibiotics) (Verified Allergy, Unknown, 06/02/18) Home Meds Reported Medications Na Phos,M-B/Na Phos,Di-Ba (FLEET ENEMA) 133 Ml Enema, 1 THA RC PRN for CONSTIPATION 06/02/18 Guaifenesin/Dextromethorphan (Guaifenesin Dm Syrup) 100 Mg-10 Mg/5 Ml Syrup, 15 ML PO Q6H PRN for COUGH 06/02/18 Donepezil Hcl (DONEPEZIL HCL) 10 Mg Tablet, 10 MG PO QHS, TAB 06/02/18 Calcium Carbonate (CALCI-CHEW) 500 Mg Tab.chew, 2 TAB PO Q2H PRN for GERD, TAB.CHEW 06/02/18 Gabapentin (GABAPENTIN) 100 Mg Capsule, 100 MG PO TID, CAPSULE 06/02/18 Calcium Carbonate/Vitamin D3 (CALCIUM + VITAMIN D TABLET) 1 Each Tablet, 1 TAB PO DAILY 06/02/18 Vits A and D/White Pet/Lanolin (A and D Ointment) 42.5 Gm Oint...g. Apply to feet at HS for dry skin 06/02/18 Quetiapine Fumarate (SEROQUEL) 25 Mg Tablet, 25 MG PO BID 06/02/18 Multivitamin With Minerals (MULTIPLE VITAMIN) 1 Each Tablet, 1 EACH PO QDAY, TAB 06/02/18 Magnesium Hydroxide (MILK OF MAGNESIA) 400 Mg/5 Ml Oral.susp, 30 ML PO BID PRN for CONSTIPATION, BOTTLE 06/02/18 Lorazepam (LORAZEPAM) 0.5 Mg Tablet, 0.25 TAB PO BID 06/02/18 Loperamide Hcl (ANTI-DIARRHEA) 2 Mg Tablet, 2 MG PO QID PRN for DIARRHEA 06/02/18 Levothyroxine Sodium (LEVOTHYROXINE SODIUM) 75 Mcg Tablet, 75 MCG PO QDAY, TAB 06/02/18 Ibuprofen (IBUPROFEN) 200 Mg Capsule, 1 CAP PO Q6H PRN for pain, CAPSULE 06/02/18 Hydroxyzine Hcl (HYDROXYZINE HCL) 25 Mg Tablet, 25 MG PO Q8H PRN for ITCHING 06/02/18 Citalopram Hydrobromide (CITALOPRAM HBR) 20 Mg Tablet, 20 MG PO QDAY, #5 TAB Give everyday except Monday. 06/02/18 Aspirin (ASPIR 81) 81 Mg Tablet.dr, 81 MG PO QDAY, TAB 06/02/18 Dextran 70/Hypromellose (ARTIFICIAL TEARS) 1 Each Droperette, 1 EACH OP 06/02/18 Acetaminophen 500 Mg Tab (ACETAMINOPHEN EXTRA STRENGTH) 500 Mg Tablet, 500 MG PO Q6H PRN for PAIN, TAB 06/02/18 Past Medical/Surgical History The patient has a past medical and surgical history of Alzheimer's type dementia, hypertension, GERD, acute kidney failure, arthritis, osteoporosis, hypothyroidism, depression, anxiety. Reviewed Nurses Notes: Yes Hx Smoking: Yes Smoking Status: Former Smoker Constitutional Vital Sign - Last 24 Hours 07/31/18 07/31/18 07/31/18 07/31/18 20:17 20:18 20:26 20:30 Temp 98.2 Pulse 72 72 Resp 16 B/P (MAP) 112/60 112/60 (77) 118/50 (72) Pulse Ox 94 97 O2 Delivery Room Air 07/31/18 07/31/18 07/31/1807/31/18 20:41 20:56 21:11 21:26 Pulse 72 79 74 74 Pulse Ox 98 93 91 90 07/31/18 07/31/18 21:30 21:41 Pulse 75 B/P (MAP) 103/41 (61) Pulse Ox 89 Physical Exam General Appearance: The patient is alert, has no immediate need for airway protection and no signs of toxicity, making good eye contact, not currently agitated. Eyes: Pupils equal and round no pallor or injection. ENT, Mouth: Mucous membranes are moist. Respiratory: There are no retractions, lungs are clear to auscultation. Cardiovascular: Regular rate and rhythm, systolic murmur, no clicks or rubs. Gastrointestinal: Abdomen is soft and non tender, no masses, bowel sounds normal. Neurological: Alert to self and location although she did think that she was in [place] for a brief moment, moving all extremities. Following all commands. No focal neuro deficits. Skin: Warm and dry, no rashes. Musculoskeletal: Neck is supple non tender. Extremities are nontender, nonswollen and have full range of motion. DIFFERENTIAL DIAGNOSIS: After history and physical exam differential diagnosis was considered for progression of Alzheimer's, urinary tract infection. Medical Decision Making Data Points Laboratory Hematology Test 07/31/18 21:08 Urine Color Yellow Urine Clarity Slightly-cloudy Urine pH 8.0 pH (4.8-9.5) Urine Specific [place] 1.018 Urine Protein Negative mg/dL (NEGATIVE) Urine Glucose (UA) Negative mg/dL (NEGATIVE) Urine Ketones Negative mg/dL (NEGATIVE) Urine Blood Negative (NEGATIVE) Urine Nitrite Negative (NEGATIVE) Urine Bilirubin Negative (NEGATIVE) Urine Urobilinogen Negative mg/dL (0.2-1.9) Urine Leukocyte Esterase Negative (NEGATIVE) Urine RBC None /HPF (0-2/HPF) Urine WBC 1 /HPF (0-5/HPF) Urine Squamous Epithelial Cells None /LPF (NONE-FEW) Urine Bacteria Negative /HPF (NONE-FEW) Urine Mucus None /HPF (NONE-FEW) Chemistry Test 07/31/18 21:08 Urine Color Yellow Urine Clarity Slightly-cloudy Urine pH 8.0 pH (4.8-9.5) Urine Specific [place] 1.018 Urine Protein Negative mg/dL (NEGATIVE) Urine Glucose (UA) Negative mg/dL (NEGATIVE) Urine Ketones Negative mg/dL (NEGATIVE) Urine Blood Negative (NEGATIVE) Urine Nitrite Negative (NEGATIVE) Urine Bilirubin Negative (NEGATIVE) Urine Urobilinogen Negative mg/dL (0.2-1.9) Urine Leukocyte Esterase Negative (NEGATIVE) Urine RBC None /HPF (0-2/HPF) Urine WBC 1 /HPF (0-5/HPF) Urine Squamous Epithelial Cells None /LPF (NONE-FEW) Urine Bacteria Negative /HPF (NONE-FEW) Urine Mucus None /HPF (NONE-FEW) Urinalysis Test 07/31/18 21:08 Urine Color Yellow Urine Clarity Slightly-cloudy Urine pH 8.0 pH (4.8-9.5) Urine Specific [place] 1.018 Urine Protein Negative mg/dL (NEGATIVE) Urine Glucose (UA) Negative mg/dL (NEGATIVE) Urine Ketones Negative mg/dL (NEGATIVE) Urine Blood Negative (NEGATIVE) Urine Nitrite Negative (NEGATIVE) Urine Bilirubin Negative (NEGATIVE) Urine Urobilinogen Negative mg/dL (0.2-1.9) Urine Leukocyte Esterase Negative (NEGATIVE) Urine RBC None /HPF (0-2/HPF) Urine WBC 1 /HPF (0-5/HPF) Urine Squamous Epithelial Cells None /LPF (NONE-FEW) Urine Bacteria Negative /HPF (NONE-FEW) Urine Mucus None /HPF (NONE-FEW) ED Course/Re-evaluation ED Course The patient was admitted to room via EMS. History and physical were obtained. Differential diagnoses were considered. A catheter UA was collected. UA unremarkable. Patient is resting comfortably, she does have intermittent outbursts and yelling, this seems to be secondary to the blood pressure cuff and it inflates causing discomfort to her arm. Otherwise the patient has been cooperative. The patient was sent back to the [facility] via EMS. Decision to Disposition Date: Jul 31, 2018 Decision to Disposition Time: 21:34 Depart Departure Latest Vital Signs Vital Signs Date Time Temp Pulse Resp B/P (MAP) Pulse Ox O2 Delivery O2 Flow Rate FiO2 07/31/18 21:41 75 89 07/31/18 21:30 103/41 (61) 07/31/18 20:17 98.2 16 Room Air Impression: Primary Impression: Dementia Condition: Condition Unchanged Disposition: HOME OR SELF-CARE (To the [facility].) Patient Instructions: Dementia (ED) Additional Instructions: There is no indication of a urinary tract infection today. Continue with the current medications. Follow-up with her primary care provider as needed. Continue to push fluids. Try to get as much rest as possible. Return to the ER for any other concerns or worsening symptoms. Problem Qualifiers Primary Impression: Dementia Dementia type: Alzheimer's disease Alzheimer's disease onset: unspecified onset Dementia behavioral disturbance: with behavioral disturbance Qualified Codes: G30.9 - Alzheimer's disease, unspecified; F02.81 - Dementia in other diseases classified elsewhere with behavioral disturbance PAXTON HERNANDEZ CHIEF STRATEGY OFFICER-BC Jul 31, 2018 20:23
[2018-07-31 21:30] VITALS: BP 103/41
== END 2018-07-31 22:15 | disposition home or self-care (01) ==
LOC: ER 20:16
DX: G30.9 Alzheimer's disease, unspecified (principal); F02.81 Dementia in other diseases classified elsewhere, unspecified severity, with behavioral disturbance
CPT/HCPCS: 81001; 99283; A4353

== ENCOUNTER → 2018-07-31 | Outpatient (CLI) | payer MEDICARE, MEDICAID ==
[2018-06-03 11:17] VITALS: BMI 31.3
== END ==
LOC: AMB 19:41
PROVIDERS: ATTEND Nurse Practitioner
DX: R45.1 Restlessness and agitation (principal); G30.9 Alzheimer's disease, unspecified; F02.81 Dementia in other diseases classified elsewhere, unspecified severity, with behavioral disturbance; R09.02 Hypoxemia
CPT/HCPCS: A0425; A0429

== ENCOUNTER → 2018-07-31 | Outpatient (CLI) | payer MEDICARE, MEDICAID ==
[2018-06-03 11:17] VITALS: BMI 31.3
== END ==
LOC: AMB 21:54
PROVIDERS: ATTEND Nurse Practitioner
DX: R41.0 Disorientation, unspecified (principal)
CPT/HCPCS: A0425; A0428